=== PATIENT | female | born 1975 ===

== ENCOUNTER 2019-11-25 09:07 | Outpatient (CLI) | payer OTHER ==
--- NOTE | 2019-11-25 12:55 | Ultrasound Report ---
Procedure: Ultrasound-guided left biopsy, 11/25/2019 Clinical information/indication: The patient has a history of abnormal mammogram and ultrasound. Rece nt imaging performed at an outside facility demonstrated a subtle area of abnormal density at the 3:0 0 position in the left breast with a corresponding subtle hypoechoic region seen on ultrasound. Comparison: Screening mammogram, 10/01/2019. Left breast ultrasound, 11/11/2019 Procedure: The benefits, indications and risks were discussed with the patient including but not limi octavio to bleeding, infection, hematoma formation, and inadequate tissue sampling. The patient agreed to proceed with both verbal and written consent. A timeout procedure was performed using 2 patient iden tifiers. The [employer] inspector publications was used for official communication with this patient to achie ve informed consent and a timeout procedure. Additionally, I personally performed real-time ultrasound of the upper outer quadrant of the left lillian ast in order to verify the targeted interest and to evaluate for any additional abnormality. The targ eted area of interest has the appearance of dense fibroglandular tissue, rather than a true mass. No suspicious solid mass or shadowing was visualized real-time. The breast was prepped and draped in the usual sterile fashion. Lidocaine with and without epinephrin e were used for local anesthesia. Under direct ultrasound guidance, multiple core samples were obtain ed of the subtle area of hypoechoic shadowing at the 3:00 position 5 cm from the nipple, as described by the outside imaging report. A biopsy marker was then placed. Biopsy device was removed and hemost asis achieved with manual pressure. A sterile dressing was applied to the skin. The patient tolerated the procedure without difficulty. No complications were encountered. Specimens were sent to pathology. IMPRESSION: 1. Technically successful left breast biopsy. Signer Name: Kat Freeman MD Signed: 11/25/2019 12:50 PM Workstation Name: [id number]
--- NOTE | 2019-11-25 12:58 | Mammography Report ---
DIGITAL DIAGNOSTIC MAMMOGRAM WITH CAD, 11/25/2019 INDICATION: Postbiopsy mammogram after ultrasound-guided biopsy to document clip placement TECHNIQUE: Digital left mammographic imaging was performed. Spot compression views were obtained. This examination was interpreted with the benefit of Computer-aided Detection analysis. COMPARISON: Screening mammogram, 10/01/2019. Left breast ultrasound, 11/11/2019. Ultrasound-guided biop sy, 11/25/2019 FINDINGS: Breast Density: The breasts are heterogeneously dense, which may obscure small masses. Spot compression views and exaggerated cc view were obtained in order to better evaluate the area of interest that was described on the recent mammography report from an outside facility. Spot compressi on views of the area of interest fail to demonstrate a true abnormal density or area of distortion A left postbiopsy mammogram was also performed which confirms satisfactory positioning of the biopsy clip in the area of interest at the 2-3:00 position middle depth. IMPRESSION: Follow up recommendation: No recall. Post biopsy imaging. Satisfactory positioning of biopsy clip after ultrasound-guided biopsy. A "normal" or negative report should not discourage follow up or biopsy of a clinically significant f inding. A written summary of these findings will be mailed to the patient. The patient will be entered into a mammography reporting system which will generate a reminder letter for the patient's next appointmen t at the appropriate interval. According to the [employer], yearly mammograms are recommended starting at age 40 and continuing as long as a woman is in good health. Breast MRI is recommended for women with an loreto roximately 20-25% or greater lifetime risk of breast cancer, including women with a strong family his tory of breast or ovarian cancer and women who have been treated for Hodgkin's disease. Signer Name: Kat Freeman MD Signed: 11/25/2019 12:53 PM Workstation Name: [id number]
== END 2019-11-25 09:08 | disposition home or self-care (01) ==
LOC: SPVWC 09:07
PROVIDERS: ATTEND Obstetrics & Gynecology
DX: R92.2 Inconclusive mammogram (principal); R92.8 Other abnormal and inconclusive findings on diagnostic imaging of breast; N60.32 Fibrosclerosis of left breast; Z98.890 Other specified postprocedural states
CPT/HCPCS: 88305